=== PATIENT | female | born 1950 | race Caucasian/White ===

== ENCOUNTER 2018-07-30 13:01 | Outpatient (CLI) | payer MEDICARE, OTHER ==
--- NOTE | 2018-07-26 08:14 | NUR ---
LEFT DETAILED MSG ON THE MACHINE FOR THE PROCEDURE INCLUDING CALL BACK NUMBER
[~2018-07-30] VITALS: Ht 175.3 cm; Wt 130.5 kg
[~2018-07-30 13:01] MED LIST: ATARAX50 MG PO; KLONOPIN 0.5MG0.5 MG PO; KLONOPIN 1MG1 MG PO; WELLBUTRIN XL150 MG PO
[2018-07-30 13:15] VITALS: BP 157/87; PULSE 83
[2018-07-30 15:10] VITALS: BP 137/80; PULSE 76
[2018-07-30 15:15] VITALS: BP 137/80; PULSE 75
[2018-07-30 15:24] LABS: GLUCOSE,CSF 58 mg/dL (40-70); TOTAL PROTEIN,CSF 53 mg/dL (15-45)
[2018-07-30 15:25] VITALS: BP 111/84; BP 124/76; PULSE 75; PULSE 85
[2018-07-30 15:44] LABS: CSF APPEARANCE CLEAR; CSF COLOR COLORLESS; CSF RBC 87 /mm3 (0-0)
[2018-07-30 15:45] VITALS: BP 112/75; BP 136/79; PULSE 74; PULSE 79
[2018-07-30 15:55] VITALS: BP 114/74; PULSE 90
[2018-07-30 15:56] LABS: CSF MONONUCLEAR 99 % (70-100); CSF POLYMORPHONUCLEAR 1 % (0-6)
--- NOTE | 2018-07-30 16:51 | NUR ---
Discharge instructions given to pt.Pt verbalizes udnerstanding.Pt escorted out by this nurse.
== END 2018-07-30 16:53 | disposition home or self-care (01) ==
LOC: COL.RAD 13:01
PROVIDERS: Psychiatry & Neurology Neurology
DX: R90.89 Other abnormal findings on diagnostic imaging of central nervous system (principal)

== ENCOUNTER → 2018-08-09 | Outpatient (CLI) | payer MEDICARE, OTHER | LOC: COL.CARD 13:00 | DX: R51 Headache (principal); R20.2 Paresthesia of skin; R20.0 Anesthesia of skin ==

== ENCOUNTER 2021-03-15 13:15 | Outpatient (RCR) | payer MEDICARE, OTHER | END 2021-03-15 14:00 | disposition home or self-care (01) | LOC: WSPT 13:15 | DX: S43.431A Superior glenoid labrum lesion of right shoulder, initial encounter (principal); M19.011 Primary osteoarthritis, right shoulder; M75.91 Shoulder lesion, unspecified, right shoulder ==

== ENCOUNTER 2021-03-30 12:55 | Emergency (ER) | payer MEDICARE, OTHER ==
[~2021-03-30] VITALS: Ht 175.3 cm; Wt 142.7 kg
[2021-03-30 13:10] VITALS: TEMP 37
[2021-03-30 15:41] LABS: BASO # 0.1 K/mm3 (0.0-0.2); BASO % 0.7 % (0.0-2.0); EOS # 0.2 K/mm3 (0.0-0.7); GRAN # 6.9 K/mm3 (1.4-6.5); GRAN % 62.5 % (42.2-75.2); HEMATOCRIT 45.3 % (37.0-47.0); HEMOGLOBIN 14.6 g/dl (12.5-16.0); LYMPH % 27.1 % (20.0-51.0); MEAN CELL VOLUME 83 fl (80.0-100.0); MEAN CORPUSCULAR HEMOGLOBIN 27 pg (27.0-31.0); MEAN CORPUSCULAR HGB CONC 32 g/dl (33.0-37.0); MEAN PLATELET VOLUME 10.5 fl (7.4-10.4); MONO # 0.8 K/mm3 (0.1-0.6); MONO % 7.3 % (1.7-9.3); PLATELET COUNT 387 K/mm3 (130-400); RED BLOOD COUNT 5.45 M/mm3 (4.10-5.30); REDCELL DISTRIBUTION WIDTH-CV 15.7 % (11.5-14.5)
[2021-03-30 15:59] LABS: ALANINE AMINOTRANSFERASE 24 U/L (0-55); ALBUMIN 3.9 gm/dL (3.4-4.8); ALKALINE PHOSPHATASE 122 U/L (40-150); ANION GAP 13 mmol/L (7-16); AST,SGOT 21 U/L (5-34); BILIRUBIN,TOTAL 0.6 mg/dL (0.2-1.2); BLOOD UREA NITROGEN 16 mg/dL (10-20); CALCIUM 9.4 mg/dL (8.4-10.2); CARBON DIOXIDE 28 mmol/L (23-31); CHLORIDE 101 mmol/L (98-107); CREATININE, serum 0.99 mg/dL (0.57-1.11); GLUCOSE 129 mg/dL (70-99); POTASSIUM 3.8 mmol/L (3.5-4.5); SODIUM 142 mmol/L (136-145); TOTAL PROTEIN 8.1 gm/dL (6.2-8.1)
[2021-03-30 16:06] LABS: TROPONIN-I < 0.010 ng/mL (0.00-0.033)
[2021-03-30 16:43] VITALS: BP 108/59; PULSE 71
== END 2021-03-30 16:43 | disposition home or self-care (01) ==
LOC: COL.ER 12:55
PROVIDERS: Student in an Organized Health Care Education/Training Program
DX: R06.09 Other forms of dyspnea (principal)

== ENCOUNTER 2021-07-15 14:55 | Emergency (ER) | payer MEDICARE, OTHER ==
[~2021-07-15] VITALS: Ht 175.3 cm; Wt 141.4 kg
[2021-07-15 15:10] VITALS: TEMP 98.8
[2021-07-15 16:24] LABS: BASO # 0.1 K/mm3 (0.0-0.2); BASO % 0.7 % (0.0-2.0); EOS # 0.2 K/mm3 (0.0-0.7); GRAN # 6.8 K/mm3 (1.4-6.5); GRAN % 70.1 % (42.2-75.2); HEMATOCRIT 42.8 % (37.0-47.0); LYMPH % 20.1 % (20.0-51.0); MEAN CELL VOLUME 84 fl (80.0-100.0); MEAN CORPUSCULAR HEMOGLOBIN 28 pg (27-31); MEAN CORPUSCULAR HGB CONC 33 g/dl (33.0-37.0); MEAN PLATELET VOLUME 10.7 fl (7.4-10.4); MONO # 0.7 K/mm3 (0.1-0.6); MONO % 6.8 % (1.7-9.3); PLATELET COUNT 342 K/mm3 (130-400)
[2021-07-15 16:28] LABS: INR 0.9 (0.8-3.0); PROTHROMBIN TIME 10.4 SECONDS (9.7-12.8)
[2021-07-15 16:37] LABS: ALBUMIN 3.8 gm/dL (3.4-4.8); BILIRUBIN,TOTAL 0.2 mg/dL (0.2-1.2); CALCIUM 9.2 mg/dL (8.4-10.2); CREATININE, serum 1.06 mg/dL (0.57-1.11); POTASSIUM 3.9 mmol/L (3.5-4.5); TOTAL PROTEIN 7.6 gm/dL (6.2-8.1)
[2021-07-15 17:34] LABS: COLLECTION METHOD CLEAN CATCH
[2021-07-15] MEDS ORDERED: ZOFRAN ODT4 MG PO (17:36)
[2021-07-15 17:44] LABS: PH 5 (5-8); SQUAMOUS EPITHELIAL >50 /hpf (0-10); URINE APPEARANCE Turbid (CLEAR/HAZY); URINE BACTERIA Rare /hpf (NONE SEEN); URINE BILIRUBIN Negative (NEGATIVE); URINE BLOOD 1+ (NEGATIVE); URINE COLOR Yellow (YELLOW); URINE GLUCOSE Negative (NEGATIVE); URINE KETONE Negative (NEGATIVE); URINE LEUKOCYTE ESTERASE 3+ (NEGATIVE); URINE NITRATE Negative (NEGATIVE); URINE PROTEIN(semi-quant) 1+ (NEGATIVE); URINE RBC >50 /hpf (0-2); URINE UROBILINOGEN Negative (NEGATIVE)
[2021-07-15 17:57] VITALS: BP 141/78; PULSE 79
== END 2021-07-15 17:57 | disposition home or self-care (01) ==
LOC: COL.ER 14:55
PROVIDERS: Family Medicine
DX: K52.9 Noninfective gastroenteritis and colitis, unspecified (principal); Z90.49 Acquired absence of other specified parts of digestive tract
CPT/HCPCS: J2405; J7030; Q9967

== ENCOUNTER 2023-04-05 13:40 | Emergency (ER) | payer MEDICARE, OTHER ==
[~2023-04-05] VITALS: Ht 175.3 cm; Wt 136.4 kg
[~2023-04-05 13:40] MED LIST changes: +CIPRODEX OT; +DOXYCYCLINE 10100 MG PO; +ZOFRAN ODT4 MG PO
[2023-04-05 13:47] VITALS: TEMP 98.3
[2023-04-05 15:35] VITALS: BP 130/64; PULSE 89
== END 2023-04-05 15:36 | disposition home or self-care (01) ==
LOC: COL.ER 13:40
DX: M54.50 Low back pain, unspecified (principal); R51.9 Headache, unspecified; W01.10XA Fall on same level from slipping, tripping and stumbling with subsequent striking against unspecified object, initial encounter
CPT/HCPCS: J2405

== ENCOUNTER 2023-06-08 10:38 | Observation (INO) | payer OTHER ==
[~2023-06-08] VITALS: Ht 175.3 cm; Wt 138.6 kg
[2023-06-08] VITALS (10 sets, daily range): BP systolic 104–126; BP diastolic 56–81; PULSE 62–76; TEMP 98.2
[2023-06-08] MEDS ORDERED: Morphine 4 MG/ML VIAL IV ONE (11:00)
[2023-06-08] MEDS ORDERED: Ondansetron 4 MG/2 ML VIAL IV ONE (11:00)
[2023-06-08 11:01] LABS: BASO # 0.1 K/mm3 (0.0-0.2); BASO % 0.8 % (0.0-2.0); EOS # 0.2 K/mm3 (0.0-0.7); EOS % 2.5 % (0.0-4.0); GRAN # 5.1 K/mm3 (1.4-6.5); HEMATOCRIT 43.9 % (37.0-47.0); HEMOGLOBIN 14.5 g/dl (12.5-16.0); LYMPH % 25.5 % (20.0-51.0); MEAN CELL VOLUME 87 fl (80.0-100.0); MEAN CORPUSCULAR HEMOGLOBIN 29 pg (27-31); MEAN CORPUSCULAR HGB CONC 33 g/dl (33.0-37.0); MEAN PLATELET VOLUME 10.1 fl (7.4-10.4); MONO # 0.6 K/mm3 (0.1-0.6); MONO % 6.9 % (1.7-9.3); PLATELET COUNT 364 K/mm3 (130-400); RED BLOOD COUNT 5.07 M/mm3 (4.10-5.30); REDCELL DISTRIBUTION WIDTH-CV 14.6 % (11.5-14.5)
[2023-06-08 11:13] LABS: ALBUMIN 3.4 gm/dL (3.4-4.8); BILIRUBIN,TOTAL 0.6 mg/dL (0.2-1.2); CALCIUM 9.7 mg/dL (8.4-10.2); CREATININE, serum 0.94 mg/dL (0.57-1.11); POTASSIUM 3.7 mmol/L (3.5-4.5); TOTAL PROTEIN 7.4 gm/dL (6.2-8.1)
[2023-06-08 11:18] LABS: PROTHROMBIN TIME 11.3 SECONDS (9.7-12.8); TROPONIN-I 0.017 ng/mL (0.00-0.033)
[2023-06-08] MEDS ORDERED: diphenhydrAMINE 50 MG/ML 1 ML VIAL IV SCH (11:45)
[2023-06-08] MEDS ORDERED: methylPREDNISolone Sod Succ 125 MG/2 ML VIAL IV SCH (11:45)
[2023-06-08] MEDS ORDERED: 1/2 NS 1,000 ML IV SCH ×2 (11:45→13:45)
[2023-06-08] MEDS ORDERED: Midazolam 2 MG/2 ML VIAL IV SCH (12:17)
[2023-06-08] MEDS ORDERED: Heparin 1,000 UNITS/ML 10 ML Multi-Dose VIAL IV SCH (12:18)
[2023-06-08] MEDS ORDERED: fentaNYL 50 MCG/ML 2 ML VIAL IV SCH (12:20)
[2023-06-08] MEDS ORDERED: Verapamil 2.5 MG/ML 2 ML VIAL IA SCH (12:28)
[2023-06-08] MEDS ORDERED: Heparin 1,000 UNITS/ML 10 ML Multi-Dose VIAL IA SCH (12:29)
[2023-06-08] MEDS ORDERED: Nitroglycerin 100 MCG/ML (Cath Lab) 10 ML VIAL IA SCH (12:30)
[2023-06-08] MEDS ORDERED: Iohexol 350 - 100 ML VIAL INCOR ONE (12:36)
[2023-06-08 14:08] LABS: HEMATOCRIT 39.3 % (37.0-47.0); HEMOGLOBIN 13.2 g/dl (12.5-16.0); MEAN CELL VOLUME 86 fl (80.0-100.0); MEAN CORPUSCULAR HEMOGLOBIN 29 pg (27-31); MEAN CORPUSCULAR HGB CONC 34 g/dl (33.0-37.0); MEAN PLATELET VOLUME 10.9 fl (7.4-10.4); PLATELET COUNT 332 K/mm3 (130-400); RED BLOOD COUNT 4.57 M/mm3 (4.10-5.30); REDCELL DISTRIBUTION WIDTH-CV 14.4 % (11.5-14.5)
[2023-06-08 14:20] LABS: CALCIUM 9.1 mg/dL (8.4-10.2); CREATININE, serum 0.82 mg/dL (0.57-1.11); POTASSIUM 3.9 mmol/L (3.5-4.5)
[2023-06-08] MEDS ORDERED: CELEBREX 1100 MG/CAP PO (14:47)
[2023-06-08] MEDS ORDERED: IMDUR 30MG30 MG/TAB PO (14:48)
[2023-06-08] MEDS ORDERED: NITROSTAT0.4 MG/TAB SL (14:48)
[2023-06-08] MEDS ORDERED: OZEMPIC2 MG/0.75 SQ (14:50)
[2023-06-08] MEDS ORDERED: VOLTAREN GEL 1%1 TU TP (14:51)
[2023-06-08] MEDS ORDERED: LASIX 40MG TABL40 MG PO (14:51)
[2023-06-08] MEDS ORDERED: COZAAR 25MG25 MG/TAB PO (14:52)
[2023-06-08] MEDS ORDERED: GLUCOTROL10 MG PO (14:52)
[2023-06-08] MEDS ORDERED: MAG-OX 400400 MG/TAB PO (14:53)
[2023-06-08] MEDS ORDERED: ACTOS 15MG TAB15 MG PO (14:54)
[2023-06-08] MEDS ORDERED: BUSPAR 30MG30 MG/TAB PO (14:54)
[2023-06-08] MEDS ORDERED: LEXAPRO20 MG PO (14:54)
[2023-06-08] MEDS ORDERED: SONATA 10MG10 MG PO (14:55)
[2023-06-08] MEDS ORDERED: NEURONTIN100 MG/CAP PO (14:56)
[2023-06-08] MEDS ORDERED: TYLENOL 500MG500 MG PO (14:57)
[2023-06-08] MEDS ORDERED: LIPITOR20 MG PO (14:58)
[2023-06-08] MEDS ORDERED: MULTIPLE VITAMI1 TA1 PO (14:59)
[2023-06-08] MEDS ORDERED: FERRO-TIME325 MG PO (14:59)
[2023-06-08] MEDS ORDERED: PROTONIX 40MG T40 MG PO (15:14)
--- NOTE | 2023-06-08 16:23 | NUR ---
Pt came to [facility] post heart cath procedure. Pt was bedrest for 2 hrs. At time of arrival the right radial wrist was assessed. No bleeding, skin clean and dry. At the start of the 3rd hr of recovery 2ml air was taken out of the right radial band, about every 15 mins. The right radial site was assessed at the time of each 2ml air removal. No bleeding, site stayed clean and dry. Once all the air was released the site was cleaned and a band-aid was placed. The deflated radial band was placed back on the right wrist as a reminder to limit extermity use. Pt was given discharge education and information. No questions at this time. Pt exited the unit by wheelchair to sons car.
== END 2023-06-08 16:11 | disposition home or self-care (01) ==
LOC: COL.ER 10:38 → EUO 12:57 → IMCU 13:05 → EUO 14:37 → IMCU 14:38
PROVIDERS: Nurse Practitioner; ADMIT Internal Medicine
DX: R07.89 Other chest pain (principal)
CPT/HCPCS: J1200; J1644; J2250; J2270; J2405; J2930; J3010; Q9967

== ENCOUNTER 2023-11-12 11:04 | Day surgery (SDC) | payer MEDICARE, OTHER ==
[~2023-11-12] VITALS: Ht 170.2 cm; Wt 135.1 kg
[~2023-11-12 11:04] MED LIST changes: +ACTOS 15MG TAB15 MG PO; +BUSPAR 30MG30 MG/TAB PO; +CELEBREX 1100 MG/CAP PO; +COZAAR 25MG25 MG/TAB PO; +FERRO-TIME325 MG PO; +GLUCOTROL10 MG PO; +IMDUR 30MG30 MG/TAB PO; +LASIX 40MG TABL40 MG PO; +LEXAPRO20 MG PO; +LIPITOR20 MG PO; +MAG-OX 400400 MG/TAB PO; +MULTIPLE VITAMI1 TA1 PO; +NEURONTIN100 MG/CAP PO; +NITROSTAT0.4 MG/TAB SL; +OZEMPIC2 MG/0.75 SQ; +PROTONIX 40MG T40 MG PO; +SONATA 10MG10 MG PO; +TYLENOL 500MG500 MG PO; +VOLTAREN GEL 1%1 TU TP
[2023-11-12] MEDS ORDERED: Ondansetron 4 MG/2 ML VIAL IV PRN (11:15)
[2023-11-12] MEDS ORDERED: LR 1,000 ML IV ONE (11:45)
[2023-11-12] MEDS ORDERED: Lidocaine PF 2% (20 MG/ML) 5 ML VIAL ONE (12:18)
[2023-11-12 13:03] VITALS: BP 146/76; PULSE 75; TEMP 97.8
[2023-11-12 13:15] VITALS: BP 129/59; PULSE 67; TEMP 97
--- NOTE | 2023-11-12 13:15 | NUR ---
PATIENT AMBULATED TO CHAIR WITH STEADY GAIT, ASSIST OF 2. ALERT AND AWAKE. DENIES PAIN, NAUSEA AND SHORTNESS OF BREATH. BREATHING REGULAR AND UNLABORED ON ROOM AIR. SKIN WARM AND DRY. IV IN PLACE. NURSE HANDOFF COMPLETED IN ROOM. SEE CHART FOR VITAL SIGNS. PATIENT HAD APPLE JUICE AND CHOCOLATE PUDDING. BOTH FOOD AND DRINK TOLERATED WELL.
[2023-11-12 13:30] VITALS: BP 137/65; PULSE 66
[2023-11-12 13:45] VITALS: BP 141/73; PULSE 66
[2023-11-12 14:00] VITALS: BP 136/87; PULSE 67
--- NOTE | 2023-11-12 14:19 | NUR ---
1406: DISCHARGE TEACHING COMPLETED WITH PRINTED EDUCATION AND INSTRUCTIONS SENT HOME WITH PATIENT. PATIENT VERBALIZED UNDERSTANDING OF TEACHING. 1415: PATIENT AMBULATED TO AND FROM RESTROOM WITH STEADY GAIT. 1419: IV REMOVED. GAUZE AND COBAN PLACED OVER SITE. PATIENT STATED SHE MET WITH TO DISCUSS PROCEDURE FINDINGS. DENIES PAIN AND NAUSEA. 1421: PATIENT DISCHARGED HOME WITH BILL TRANSPORT.
== END 2023-11-12 14:21 | disposition home or self-care (01) ==
LOC: SDCO 11:04
DX: K20.80 Other esophagitis without bleeding (principal); K29.30 Chronic superficial gastritis without bleeding; Z12.11 Encounter for screening for malignant neoplasm of colon; D12.3 Benign neoplasm of transverse colon; K63.5 Polyp of colon; K57.30 Diverticulosis of large intestine without perforation or abscess without bleeding; K64.0 First degree hemorrhoids; E66.9 Obesity, unspecified
CPT/HCPCS: J2704; J7120